=== PATIENT | male | born 1950 | race Hispanic/Latino ===

== ENCOUNTER 2020-01-14 21:07 | Inpatient (IN) | payer MEDICARE, OTHER ==
[~2020-01-14] VITALS: Ht 180.3 cm; Wt 86.0 kg
[2020-01-14] MEDS ORDERED: ONDANSETRON HCL 4 MG/2 ML VIAL ONE (21:30)
[2020-01-14] MEDS ORDERED: MORPHINE SULFATE 4 MG/1ML SYG ONE (21:31)
[2020-01-14 21:52] LABS: BASOPHILS % (AUTO) 0.5 % (0.0-5.0); EOSINOPHILS % (AUTO) 1.6 % (0.0-8.0); HEMATOCRIT 45.9 % (42-54); LYMPHOCYTES % (AUTO) 29.1 % (21.0-51.0); MEAN CORPUSCULAR HEMOGLOBIN 29.2 pg (27.0-33.0); MEAN CORPUSCULAR HGB CONC 33.6 g/dL (32.0-36.0); MEAN CORPUSCULAR VOLUME 86.9 fL (79-99); NEUTROPHILS % (AUTO) 62.1 % (40.0-77.0); PLATELET COUNT (AUTO) 209 K/uL (130-400); RED BLOOD CELL COUNT(AUTO) 5.28 MIL/uL (4.50-6.20); RED CELL DISTRIBUTION WIDTH 13.2 % (11.0-15.5); WHITE BLOOD COUNT (AUTO) 8.3 K/uL (4.8-10.8)
[2020-01-14 22:05] LABS: CARBON DIOXIDE 24 mmol/L (21-32); CHLORIDE 104 mmol/L (101-111); CREATININE 1.8 mg/dL (0.5-1.5); GLOMERULAR FILTR. RATE CALC 40 mL/min (>60); GLUCOSE,RANDOM 195 mg/dL (70-105); POTASSIUM 4.3 mmol/L (3.5-5.1); SODIUM SERUM 141 mmol/L (136-145); UREA NITROGEN, BLOOD 32 mg/dL (7-18)
[2020-01-14 22:06] LABS: PARTIAL THROMBOPLASTIN TIME 21.1 SEC (26.3-35.5); PROTHROMBIN TIME 10.8 SEC (9.6-11.6)
[2020-01-14 22:09] LABS: ALANINE AMINOTRANSFERASE 52 U/L (12-78); ALBUMIN 4.2 g/dL (3.5-5.0); ASPARTATE AMINOTRANSFERASE 30 U/L (10-37); BILIRUBIN,TOTAL 0.3 mg/dL (0.2-1.0); CREATINE KINASE, TOTAL 162 U/L (21-232); LIPASE 106 U/L (114-286); TOTAL PROTEIN, SERUM 7.7 g/dL (6.0-8.3)
[2020-01-14 22:12] LABS: ALCOHOL, BLOOD < 3 mg/dL (0-10)
[2020-01-15] VITALS (28 sets, daily range): BP systolic 117–165; BP diastolic 62–91
[2020-01-15] MEDS ORDERED: CEFAZOLIN SODIUM 1 GM VIAL ONE ×2 (00:21→16:56)
[2020-01-15] MEDS ORDERED: TETANUS/DIPHTHERIA TOXOID [ADULT] 0.5 ML VIAL IM ONE (00:22)
[2020-01-15] MEDS ORDERED: SODIUM CHLORIDE 0.9% 100 ML IV ONE (00:23)
[2020-01-15] MEDS ORDERED: TRAMADOL HCL 50 MG TABLET PO PRN (01:45)
--- NOTE | 2020-01-15 06:36 | NUR ---
PATIENT ARRIVED TO ROOM AAOX4, NO ACUTE DISTRESS NOTED AT THIS TIME. PT IS POST FALL FROM LADDER RESULTING IN LEFT FOREARM FRACTURE. CURRENTLY ARM WITH SPLINT AND SUPPORTED WITH SLING. FINGERS ARE WARM, ABLE TO MOVE AND GOOD CAPILLARY REFILLS < 3 SEC. POC DISCUSSED WITH PATIENT. PENDING TO HAVE DR. PATEL IN TO SEE PATIENT. CALL GRIMM IS WITHIN REACH, WILL CONT TO MONITOR CLOSELY.
[2020-01-15] MEDS: FAMOTIDINE 20MG TAB 20 MG TAB PO SCH (09:00)
[2020-01-15] MEDS: CEFAZOLIN SODIUM 1 GM VIAL IVP SCH ×3 (09:44→16:55)
--- NOTE | 2020-01-15 11:17 | NUR ---
CHART CHECK COMPLETED. Pt IS A 69 Y.O. MALE ADMITTED SECONDARY TO LEFT ELBOW FRACTURE. Pt HAS A PAST MEDICAL HISTORY SIGNIFICANT FOR TEMPORARY VISION LOSS. Pt CURRENTLY ON REGULAR TEXTURE,THIN LIQUID DIET. PLEASE REQUEST FORMAL SKILLED SPEECH/SWALLOW EVALUATION IF Pt PRESENTS WITH +S/S OF ASPIRATION SUCH COUGH RESPONSE, THROAT CLEAR, OR WET VOCAL QUALITY DURING P.O. Addendum: 01/15/20 at [address] Amended: Links added.
[2020-01-15] MEDS ORDERED: LACTATED RINGERS 1000ML 1,000 ML IV ONE (13:00)
[2020-01-15] MEDS ORDERED: MIDAZOLAM HCL 1 MG/ML 2ML VIAL ONE (13:21)
[2020-01-15] MEDS ORDERED: FENTANYL CITRATE PF 50 MCG/1 ML 2ML VIAL ONE (13:22)
[2020-01-15] MEDS ORDERED: DEXAMETHASONE SOD PHOSPHATE 10MG/ML 1ML VIAL ONE (13:23)
[2020-01-15] MEDS ORDERED: LIDOCAINE PF 2% 5ML ABBOJECT ONE (13:23)
[2020-01-15] MEDS ORDERED: METOCLOPRAMIDE 10 MG/2 ML VIAL ONE (13:49)
[2020-01-15] MEDS ORDERED: CITRIC ACID/SODIUM CITRATE 30 ML UDCUP ONE (13:50)
[2020-01-15] MEDS ORDERED: ROPIVACAINE 0.5% 5MG/ML 30ML IJ ONE ×2 (15:34→17:07)
--- NOTE | 2020-01-15 16:00 | NUR ---
IA DONE BY PHONE FOR DC PLANNING CALL MADE TO [facility], SPOUSE BY JAYLIN RAYMUNDO FOR DCP PLANNING. PER SPOUSE, PATIENT IS INDEPENDENT , USES NO DME, DRIVES, HOME SAFE AND ACCESSIBLE, DCP HOME PATIENT HERE FOR FALL W FRACTURE. NO DC NEEDS EXPECTED, CM TO FOLLOW Addendum: 01/16/20 at 1857 by RAKESH HERNANDEZ RN CM Amended: Links added.
[2020-01-15] MEDS ORDERED: NEOSTIGMINE 5MG/5ML SYR IV ONE (17:07)
[2020-01-15] MEDS ORDERED: GLYCOPYRROLATE 1 MG/5 ML SYRINGE ONE (17:07)
--- NOTE | 2020-01-15 19:30 | NUR ---
PATIENT BACK FROM PACU, POST LEFT RADIAL /ULNA ORIF. LEFT ARM WITH SLING, DRESSING WRAPPED WITH BRITNEY WRAP. RADIAL PULSE STRONG, FINGERS WARM AND PATIENT ABLE TO MOVE THEM, POC DISCUSSED WITH PATIENT. NO C/O PAIN AT THIS TIME. WILL CONT TO MONITOR CLOSELY. VITAL SIGNS PER PROTOCOL. PT IS DTV.
--- NOTE | 2020-01-15 21:00 | NUR ---
NO C/O PAIN VOICED BY PATIENT. FINGERS WARM, STRONG RADIAL PULSE NOTED. WILL CONT TO MONITOR.
[2020-01-16] VITALS (8 sets, daily range): BP systolic 99–145; BP diastolic 56–87
[2020-01-16] MEDS: CEFAZOLIN SODIUM 1 GM VIAL IVP SCH ×4 (00:56→21:23)
[2020-01-16] MEDS: FAMOTIDINE 20MG TAB 20 MG TAB PO SCH (08:42)
[2020-01-16] MEDS ORDERED: NAPROXEN 500 MG TABLET PO ONE (20:30)
[2020-01-16] MEDS ORDERED: TIZANIDINE HCL 2 MG TABLET PO ONE (20:30)
[2020-01-16 21:35] LABS: APPEARANCE,URINE Clear (CLEAR); BILIRUBIN,URINE Negative (NEGATIVE); COLOR,URINE Yellow (YELLOW); GLUCOSE, URINE (UA) Negative (NEGATIVE); KETONES,URINE Negative (NEGATIVE); LEUKOCYTE ESTERASE ,URINE Trace (NEGATIVE); NITRATE,URINE Negative (NEGATIVE); OCCULT BLOOD,URINE Trace (NEGATIVE); PROTEIN,URINE Negative (NEGATIVE); UROBILINOGEN,URINE 0.2 mg/dL (0.2-1.0)
[2020-01-16 21:42] LABS: AMPHET/METH SCREEN,URINE NEGATIVE (NEGATIVE); BARBITURATE SCREEN, URINE NEGATIVE (NEGATIVE); BENZODIAZEPINES SCREEN,URINE POSITIVE (NEGATIVE); CANNABINOID SCREEN,URINE NEGATIVE (NEGATIVE); COCAINE SCREEN,URINE NEGATIVE (NEGATIVE); OPIATE SCREEN,URINE NEGATIVE (NEGATIVE); PHENCYCLIDINE SCREEN,URINE NEGATIVE (NEGATIVE)
[2020-01-16 21:45] LABS: BACTERIA,URINE Rare /HPF (None Seen); MUCUS,URINE Rare LPF (None Seen); SQUAMOUS EPITHELIAL CELL,UR Rare /HPF (0-2)
[2020-01-17 03:05] VITALS: BP 125/70
[2020-01-17] MEDS: CEFAZOLIN SODIUM 1 GM VIAL IVP SCH (05:03)
[2020-01-17 08:05] VITALS: BP 116/62
[2020-01-17] MEDS ORDERED: NAPROXEN 500 MG TABLET PO SCH (09:00)
[2020-01-17] MEDS ORDERED: TIZANIDINE HCL 2 MG TABLET PO SCH (09:00)
[2020-01-17] MEDS: FAMOTIDINE 20MG TAB 20 MG TAB PO SCH (09:09)
[2020-01-17 11:48] VITALS: BP 112/61
--- NOTE | 2020-01-17 15:30 | NUR ---
DISCHARGE PATIENT GIVEN DISCHARGE INSTRUCTIONS VIA TEACH BACK. 20G PIV TO RAC DISCONTINUED, TIP INTACT. PER DR. GALVAN, WILL CALL IN TO PATIENT'S PHARMACY TIZANIDINE AND NAPROXEN. PATIENT TO MAKE FOLLOW UP APPOINTMENTS WITH DR. GALVAN AND DR. PATEL IN 1 WEEK. SLING TO LEFT FOREARM IN PLACE. PATIENT STABLE AT THIS TIME. PATIENT WHEELED TO [facility] FOR DISCHARGE BY AUDRA FIELDS.
== END 2020-01-17 15:45 | disposition home or self-care (01) | DRG 512 ==
LOC: EDH 21:07 → EDHIP 22:50 → 3BH 01-15 05:06
PROVIDERS: ADMIT Internal Medicine; ATTEND Internal Medicine
PROC: 0PSJ04Z Reposition Left Radius with Internal Fixation Device, Open Approach (ICD-10-PCS; principal; 2020-01-15 16:31)
PROC: 0PSL04Z Reposition Left Ulna with Internal Fixation Device, Open Approach (ICD-10-PCS; 2020-01-15 16:31)
DX: S52.202A Unspecified fracture of shaft of left ulna, initial encounter for closed fracture (principal); S52.302A Unspecified fracture of shaft of left radius, initial encounter for closed fracture; I10 Essential (primary) hypertension; F32.9 Major depressive disorder, single episode, unspecified; F41.9 Anxiety disorder, unspecified; W01.0XXA Fall on same level from slipping, tripping and stumbling without subsequent striking against object, initial encounter; Y93.89 Activity, other specified; Y92.89 Other specified places as the place of occurrence of the external cause; Y99.8 Other external cause status
CPT/HCPCS: 36415; 70450; 71260; 72125; 72128; 72131; 73070; 73090; 73100; 74177; 80053; 80305; 81001; 82550; 83690; 84484; 85025; 85610; 85730; 86850; 86900; 86901; 90714; 93005; A4606; G0378; J0690; J1100; J2001; J2250; J2270; J2405; J2710; J2765; J2795; J3010; J3490; J7030; J7120